=== PATIENT | female | born 1960 | race Caucasian/White ===

== ENCOUNTER → 2020-07-11 | Day surgery (SDC) | payer OTHER ==
[~2020-07-11] MED LIST: AMLODIPINE-VAL1 EACH PO; CRESTOR20 MG PO; DICLOFENAC SODI75 MG PO; IBUPROFEN800 MG PO; LASIX20 MG PO; MEDROL 4MG DOSEP4 MG PO; MUSCLE RELAXER; PERCOCET 5-3251 EACH PO; UROCIT-K10 MEQ PO
[2020-07-11 13:59] LABS: HCT 42.8 % (37.0-47.0); MCH 28.9 pg (25.0-31.0); MCHC 32.7 g/dL (32.0-36.0); MCV 88.2 fL (78.0-100.0); MPV 8.8 fL (6.0-9.5); RBC 4.85 M/uL (4.20-5.40); RDW 12.6 % (11.5-14.0); WBC 12.4 K/uL (4.0-10.5)
[2020-07-11 14:11] LABS: ALBUMIN 3.7 g/dL (3.4-5.0); BILIRUBIN - TOTAL 0.3 mg/dL (0.2-1.0); BUN/CREAT RATIO (CALC) 29.2 RATIO; CREATININE 0.65 mg/dL (0.51-0.95); GLOBULIN (CALCULATION) 3.3 g/dL; POTASSIUM 3.7 mmol/L (3.5-5.1)
== END | disposition home or self-care (01) ==
LOC: FAS 11:45
PROVIDERS: Orthopaedic Surgery
DX: G56.03 Carpal tunnel syndrome, bilateral upper limbs (principal); M25.551 Pain in right hip; M25.512 Pain in left shoulder; I10 Essential (primary) hypertension; E78.00 Pure hypercholesterolemia, unspecified; Z88.6 Allergy status to analgesic agent; Z98.890 Other specified postprocedural states; Z20.822 Contact with and (suspected) exposure to COVID-19; Z79.899 Other long term (current) drug therapy
CPT/HCPCS: 36415; 80053; J2704; J3010; J7120